=== PATIENT | female | born 1960 | race Caucasian/White ===

== ENCOUNTER 2020-01-03 12:54 | Emergency (ER) | payer OTHER, SELFPAY ==
[2020-01-03 13:44] VITALS: BP 146/83; PULSE 98; RESP 14; TEMP 36.6; O2SAT 98; BMI 31.2
--- NOTE | 2020-01-03 13:50 | HMH.EDUTC ---
[facility] [place] Disposition Clinical Impression: Exposure to COVID-19 virus, Viral syndrome Disposition: Home, Self-Care Condition on Discharge: Good Instructions: Preventing the Spread of Coronavirus Discharge Instructions Additional Instructions: Drink plenty of fluids. Take tylenol or ibuprofen for pain or fever. Follow up with your regular doctor. GO TO THE ER FOR ANY WORSENING SYMPTOMS FOLLOW THE DIRECTIONS ON THE COVID-19 HAND OUT THAT WE GAVE YOU REGARDING SELF-ISOLATION UNTIL YOU KNOW YOUR COVID-19 RESULTS Referrals: Hanna Baron [Primary Care Provider] - Forms: Work/School Release Time of Disposition: 13:55 Medical Decision Making - Medical Records Medical records reviewed: No: I reviewed the patient's medical records. - Prem Inquiry Pt receiving controlled substance: No Vital Signs: 01/03/20 13:44 01/03/20 13:58 Temperature 97.9 F 97.9 F Temperature Source Oral Pulse Rate 98 H Pulse Rate [Right Brachial] 98 H Respiratory Rate 14 14 Blood Pressure 146/83 H Blood Pressure [Right Arm] 146/83 H Blood Pressure Mean [Right Arm] 104 Blood Pressure Source [Right Arm] Automatic Cuff Blood Pressure Position [Right Arm] Sitting 02 Sat by Pulse Oximetry 98 Oxygen Delivery Method Room Air - Lab Data Lab Results 01/03/20 13:24: Influenza Type A Ag Negative, Influenza Type B Ag Negative 01/03/20 13:24: Strep Scn Rapid Clinic Negative [facility] [place] HPI - General Stated complaint: covid exposure Time Seen by Provider: 01/03/20 13:50 Mode of Arrival: Ambulatory Source of Information: Patient Limitations: No Limitations Description of Symptoms (Recalled from Triage Doc. by RN): PATIENT C/O COUGH, RUNNY NOSE, HEADACHE, DIARRHEA AND NAUSEA. REQUESTING COVID TEST HEENT Symptoms (Recalled from RN notes): Yes Resp Symptoms (Recalled from RN notes): Yes Skin Symptoms (Recalled from RN notes): No MS Symptoms (Recalled from RN notes): No Functional Status (Recalled from RN notes): WNL - History of Present Illness Provider Complaint: She states that she was exposed to COVID-19 thru her family. She has been having vague symptoms, but no body aches, severe cough, fever or chills. - Related Data Home Medications Medication Instructions Recorded Confirmed levothyroxine 100 mcg tablet 100 mcg PO DAILY tab 03/25/19 01/03/20 sertraline 100 mg tablet 100 mg PO DAILY tab 03/25/19 01/03/20 simvastatin 10 mg tablet 10 mg PO DAILY tab 03/25/19 01/03/20 trazodone 100 mg tablet 100 mg PO QHS PRN tab 03/25/19 01/03/20 Allergies Allergy/AdvReac Type Severity Reaction Status Date / Time latex Allergy rash Verified 03/25/19 16:38 tetracycline Allergy vomiting Verified 03/25/19 16:39 - Worker's Comp Is this a Worker's Comp case?: No [facility] History - Hepatitis A Screen Drug use history?: No High risk sexual behaviors?: No History of sexually transmitted infection?: No Currently employed?: No Childcare worker?: No Do you have indoor plumbing?: Yes Do you have electricity?: Yes Attestation statement:: This patient has been screened for Hepatitis A risk factors. I have reviewed the patient's past medical history: Yes Medical History: Reports:: Diabetes Mellitus Type 2, Hyperlipidemia Other Medical History: Reports: Thyroid Disease Other Surgeries: Yes: Colonoscopy Comment: D&C - Social History Smoking Status: Never smoker Alcohol Intake: never Substance Use Type: denies use Occupational Status: other Household Members: family ROS Obtained: Yes All systems reviewed & no additional complaints - Constitutional Constitutional: Reports chills, Denies fever(s), Denies poor appetite, Denies malaise - Eyes Eyes: Denies eye discharge - ENT Ears, Nose, Mouth, and Throat: Reports as per HPI - Cardiovascular Cardiovascular: Denies chest pain - Respiratory Respiratory: No chest congestion, No cough Physical Exam - General General appearance: alert, in no apparent dis
[2020-01-03 13:58] VITALS: BP 146/83; PULSE 98; RESP 14; TEMP 36.6; O2SAT 98
[2020-01-03 20:25] LABS: UTC Influenza A Antigen Negative (Negative); UTC Influenza B Antigen Negative (Negative)
[2020-01-03 20:26] LABS: UTC Strep Screen (Rapid) Negative (Negative)
== END 2020-01-03 14:00 | disposition home or self-care (01) ==
PROVIDERS: Emergency Provider Nurse Practitioner Family; PCP Family Medicine
DX: Z20.828 Contact with and (suspected) exposure to other viral communicable diseases (principal); B34.9 Viral infection, unspecified; E78.5 Hyperlipidemia, unspecified; E11.9 Type 2 diabetes mellitus without complications; Z79.899 Other long term (current) drug therapy
CPT/HCPCS: 87804; 87880; 99201; U0003

== ENCOUNTER → 2020-01-14 15:53 | Outpatient (CLI) | payer OTHER, SELFPAY ==
[2020-01-14 20:59] LABS: Coronavirus 19 IgG Antibody Negative (Negative); Coronavirus 19 IgM Antibody Negative (Negative)
== END ==
PROVIDERS: PCP Family Medicine; Visit Provider Family Medicine
DX: Z03.818 Encounter for observation for suspected exposure to other biological agents ruled out (principal)
CPT/HCPCS: 86328; U0003

== ENCOUNTER → 2021-01-14 11:40 | Outpatient (CLI) | payer OTHER, SELFPAY | PROVIDERS: PCP Family Medicine; Visit Provider Nurse Practitioner | DX: Z20.822 Contact with and (suspected) exposure to COVID-19 (principal) | CPT/HCPCS: C9803; U0003; U0005 ==

== ENCOUNTER 2023-08-02 08:46 | Emergency (ER) | payer BC, SELFPAY ==
[2023-08-02] VITALS (7 sets, daily range): BP systolic 114–130; BP diastolic 71–98; PULSE 60–77; RESP 12–18; TEMP 36.9; O2SAT 93–97; BMI 31.7
--- NOTE | 2023-08-02 08:53 | ECG_ITS ---
APPROVED REPORT Exam: Resting ECG HR:73 bpm ECG Measurements Heart Rate 73 AXES FL 138 P 70 QRSd 90 QRS -61 QT 386 T 31 QTc 411 Conclusion SINUS RHYTHM PATTERN CONSISTENT WITH PULMONARY DISEASE LEFT ANTERIOR FASCICULAR BLOCK [QRS AXIS <= -45, QR IN I, RS IN II] Electronically signed by : JALYN BAUM, 08/02/2023 14:25:46
--- NOTE | 2023-08-02 08:55 | CT_ITS ---
FINAL REPORT TECHNIQUE: Multiple axial CT angiography images were performed from the foramen magnum to the thoracic inlet before. This study was performed with techniques to keep radiation doses as low as reasonably achievable (ALARA). Individualized dose reduction techniques using automated exposure control or adjustment of mA and/or kV according to the patient's size were employed. CLINICAL HISTORY: felt pop in head, near syncope, R tingling, fall COMPARISON: None FINDINGS: No fracture is seen. Alignment is normal. Mild degenerative disc disease is present throughout the cervical spine. No obvious bony spinal canal stenosis is present. No gross disk abnormalities are seen. IMPRESSION: No fracture or malalignment Reviewed, Interpreted and Dictated by Caridad Auguste MD Transcribed by Sarah Clifton Authenticated and [facility]
--- NOTE | 2023-08-02 08:55 | CT_ITS ---
FINAL REPORT TECHNIQUE: Multiple axial CT angiography images were performed from the foramen magnum to the vertex before and during IV contrast administration. This study was performed with techniques to keep radiation doses as low as reasonably achievable (ALARA). Individualized dose reduction techniques using automated exposure control or adjustment of mA and/or kV according to the patient's size were employed. CLINICAL HISTORY: felt pop in head, near syncope, R tingling r/o stroke COMPARISON: None FINDINGS: CTA HEAD FINDINGS: No aneurysm is seen. Major intracranial vessels are patent without significant stenosis. . 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 There is no evidence of vascular dissection identified. IMPRESSION: Unremarkable Reviewed, Interpreted and Dictated by Caridad Auguste MD Transcribed by Sarah Clifton Authenticated and [facility]
--- NOTE | 2023-08-02 08:55 | CT_ITS ---
FINAL REPORT TECHNIQUE: Noncontrast exam CLINICAL HISTORY: felt pop in head, near syncope, R tingling r/o stroke COMPARISON: None FINDINGS: No abnormal density is seen. Ventricles are normal. There is no hemorrhage. No mass effect is seen. Bone windows show no evidence of fracture. IMPRESSION: No acute findings Reviewed, Interpreted and Dictated by Caridad Auguste MD Transcribed by Sarah Clifton Authenticated and [facility]
--- NOTE | 2023-08-02 08:55 | CT_ITS ---
FINAL REPORT TECHNIQUE: Multiple axial CT angiography images were performed from the foramen magnum to the thoracic inlet before and during IV contrast administration. This study was performed with techniques to keep radiation doses as low as reasonably achievable (ALARA). Individualized dose reduction techniques using automated exposure control or adjustment of mA and/or kV according to the patient's size were employed. CLINICAL HISTORY: felt pop in head, near syncope, R tingling COMPARISON: None FINDINGS: CT NECK ANGIO, WITHOUT AND WITH CONTRAST TECHNIQUE: Thin section axial CT with IV contrast supplemented with 3D MIP reconstruction NASCET criteria and technique was utilized during interpretation. FINDINGS: Aortic arch: Arch shows no significant narrowing. Great vessel origins are widely patent. Right carotid: No significant stenosis is seen of the cervical common or internal carotid artery. Left carotid: No significant stenosis is seen of the cervical common or internal carotid artery. Vertebrals: Left vertebral artery is dominant. No significant stenosis is present. No evidence of vascular dissection is seen. IMPRESSION: No significant stenosis of the cervical carotid arteries Reviewed, Interpreted and Dictated by Caridad Auguste MD Transcribed by Sarah Clifton Authenticated and [facility]
--- NOTE | 2023-08-02 08:57 | PC.NURSE ---
DR BAUM AT BEDSIDE
--- NOTE | 2023-08-02 09:02 | PC.NURSE ---
would like stroke protocol CT to be completed stat. Morgan in Radiology notified of this.
--- NOTE | 2023-08-02 09:06 | PC.NURSE ---
patient gone to CT at this time via stretcher.
--- NOTE | 2023-08-02 09:06 | PC.NURSE ---
Pt gone to CT
--- NOTE | 2023-08-02 09:07 | HMH.EDGENADL ---
Discharge Plan Disposition Patient Disposition: Home, Self-Care Condition: Good Prescriptions Prescriptions: New meclizine 25 mg tablet 25 mg PO QID PRN (Reason: dizziness) Qty: 20 0RF fluticasone propionate [Flonase Allergy Relief] 50 mcg/actuation spray,suspension 1 spray intranasal BID Qty: 16 0RF Rx Instructions: administer into each nostril cetirizine [Zyrtec] 10 mg tablet 10 mg PO DAILY Qty: 30 0RF No Action levothyroxine 100 mcg tablet 100 mcg PO DAILY trazodone 100 mg tablet 100 mg PO QHS PRN (Reason: Anxiety) simvastatin 10 mg tablet 10 mg PO DAILY sertraline 100 mg tablet 100 mg PO DAILY Referrals Follow up/Referrals: Hanna Baron [Primary Care Provider] - See instructions Activity Restrictions/Add. Instructions Additional Instructions/Restrictions: You were evaluated in the emergency department today. Please parts picker your prescriptions at the pharmacy and take them as prescribed. Follow-up closely with your primary care provider. If your symptoms persist, you may benefit from referral to ENT. Return to the emergency department for new or worsening symptoms. Clinical Impressions Clinical Impression: Benign paroxysmal positional vertigo Stand Alone Forms Stand Alone Forms: Work/School Release Instructions Patient Instructions: DI for Vertigo, DI for Benign Paroxysmal Positional Vertigo Discharge ED Provider: Natalie Song General Adult HPI General Chief complaint: Weakness Stated complaint: dizzy, weakness Time Seen by Provider: 08/02/23 08:55 Mode of Arrival: Ambulatory Source of Information: Patient Limitations: No Limitations Description of Symptoms (Recalled from ER Triage Doc. by RN): dizziness, nausea, r arm tingling History of Present Illness HPI narrative: This patient is a 63-year-old female with a history of hyperlipidemia and hypothyroidism presenting to the emergency department for evaluation with concern for dizziness as well as right face and right arm tingling. Patient reports that she got up to go to work this morning when she was in the shower between 630 and 6:45 AM and suddenly experienced what felt like a pop in her head as well as dizziness. Patient states that it felt like she was going to fall to the right, so she had to go down because she could not stand without feeling like she was falling to the right. She also states that she has tingling of her right face and right arm. She also feeling very nauseated. She was well prior to this. She does not use any anticoagulation and has no history of stroke. She has no vision changes, chest pain, shortness of breath, vomiting, changes bowel movements, or other concerns. She has been suffering from a lot of allergies as of late. Related Data Home Medications Medication Instructions Recorded Confirmed levothyroxine 100 mcg tablet 100 mcg PO DAILY THYROID 03/25/19 01/03/20 sertraline 100 mg tablet 100 mg PO DAILY Depression 03/25/19 01/03/20 simvastatin 10 mg tablet 10 mg PO DAILY Cholesterol 03/25/19 01/03/20 trazodone 100 mg tablet 100 mg PO QHS PRN Anxiety 03/25/19 01/03/20 Previous Rx's Medication Instructions Recorded cetirizine 10 mg tablet (Zyrtec) 10 mg PO DAILY #30 tabs 08/02/23 fluticasone propionate 50 1 spray intranasal BID #16 grams 08/02/23 mcg/actuation nasal spray,suspension (Flonase Allergy Relief) meclizine 25 mg tablet 25 mg PO QID PRN dizziness #20 tabs 08/02/23 Allergies Allergy/AdvReac Type Severity Reaction Status Date / Time latex Allergy rash Verified 03/25/19 16:38 tetracycline Allergy vomiting Verified 03/25/19 16:39 [facility] Disclaimer: The information contained in this section may have been updated after the patient was seen, as this information can be updated by other users. Social History Smoking Status: Never smoker alcohol intake: never substance use type: denies use current occupational status: other Travel in the last 8 weeks: None household members: family ROS Obtained: Yes All systems reviewed & no additional complaints except as documented Physical Exam General General appearance: alert and in no apparent distress Head Head exam: atraumatic and normocephalic Eye Eye exam: Present PERRL, EOMI and nystagmus (horizontal unidirectional) ENT ENT exam: Present normal oropharynx, mucous membranes moist and normal external ear exam; Absent TM's normal bilaterally (serous fluid bilaterally, L>R) Neck Neck exam: Present normal inspection, full ROM and trachea midline; Absent tenderness Chest Chest inspection: Present normal inspection and symmetric chest wall rise; Absent tenderness Respiratory Respiratory exam: Present normal lung sounds bilaterally; Absent respiratory distress, wheezes, stridor or accessory muscle use Cardiovascular Cardiovascular exam: Present regular rate and normal rhythm Abdominal Exam Abdominal exam: Present soft; Absent distention, tenderness or guarding Extremities Exam Extremities exam: Present normal inspection, full ROM and normal capillary refill; Absent tenderness or edema Back Exam Back exam: Present normal inspection and full ROM; Absent tenderness Neurological Exam Neurological exam: Present alert, oriented X3, CN II-XII intact, normal gait and other (No sensory deficit despite paresthesias; horizontal unidirectional nystagmus with worsening of symptoms with EOMI testing); Absent motor sensory deficit Psychiatric Psychiatric exam: Present normal affect and normal mood Skin Skin exam: Present warm and dry Medical Decision Making Medical Records Medical records reviewed: Yes I reviewed the patient's medical records. Prem Inquiry Pt receiving controlled substance: No Vital Signs: 08/02/23 08:47 08/02/23 09:48 08/02/23 10:00 Temperature 98.4 F Temperature Source Oral Pulse Rate 64 72 Pulse Rate [Right] 77 Respiratory Rate 18 15 14 Blood Pressure 114/71 122/72 Blood Pressure [Right Arm] 130/98 H Blood Pressure Mean [Right Arm] 108 02 Sat by Pulse Oximetry 96 93 L 95 Oxygen Delivery Method Room Air 08/02/23 10:30 08/02/23 11:02 08/02/23 11:30 Temperature Temperature Source Pulse Rate 72 64 61 Pulse Rate [Right] Respiratory Rate 12 Blood Pressure 122/72 115/75 116/75 Blood Pressure [Right Arm] Blood Pressure Mean [Right Arm] 02 Sat by Pulse Oximetry 96 94 L 97 Oxygen Delivery Method Room Air Room Air Lab Data Lab results reviewed: Yes I reviewed the patient's lab results. Lab Results 08/02/23 09:02: WBC 5.5, RBC 4.72, Hgb 14.3, Hct 43.2, MCV 91.4, MCH 30.4, MCHC 33.2, RDW 13.8, Plt Count 194, MPV 8.1, Neut % (Auto) 71.1, Lymph % (Auto) 22.6, [place] % (Auto) 4.7, Eos % (Auto) 0.7, Baso % (Auto) 1.0, Neut # (Auto) 3.9, Lymph # (Auto) 1.2, [place] # (Auto) 0.3, Eos # (Auto) 0.0, Baso # (Auto) 0.1, PT 10.3, INR 0.95, APTT 26.6, Sodium 140, Potassium 3.8, Chloride 110 H, Carbon Dioxide 25, Anion Gap 8.8, BUN 21 H, Creatinine 0.90, Estimated Creat Clear 76, Estimated GFR 63, Est GFR ( Amer) 77, Glucose 145 H, Calcium 9.5, Total Bilirubin 0.6, AST 30, ALT 28, Alkaline Phosphatase 87, Troponin I < 0.01, Total Protein 7.3, Albumin 4.2, Globulin 3.1, Albumin/Globulin Ratio 1.4, Vitamin B12 259 08/02/23 11:00: Troponin I < 0.01 08/02/23 09:02 08/02/23 09:02 Orders (Tests/Meds): ED MEDICATIONS Discontinued Medications Generic Name Dose Route Start Last Admin Trade Name Freq PRN Reason Stop Dose Admin Iopamidol 100 ml 08/02/23 09:13 08/02/23 09:14 Iopamidol-370 (76%);100ml Bottle IV 08/02/23 09:14 100 ml ONCE ONE Administration Meclizine HCl 25 mg 08/02/23 09:22 08/02/23 09:24 Meclizine 25mg Tablet PO 08/02/23 09:23 25 mg ONCE ONE Administration Sodium Chloride 50 ml 08/02/23 09:13 08/02/23 09:14 0.9 % Sodium Chloride 50 Ml Vial IV 08/02/23 09:14 50 ml ONCE ONE Administration Sodium Chloride 10 ml 08/02/23 09:13 08/02/23 09:14 Sodium Chloride 0.9% 10ml Syr (Rad Only) IV 08/02/23 09:14 10 ml ONCE ONE Administration ORDERS Category Date Time Status CT angio head Stat Cat Scan 08/02/23 08:[address] angio neck Stat Cat Scan 08/02/23 08:[address] cervical spine wo con Stat Cat Scan 08/02/23 08:[address] head/brain wo con Stat Cat Scan 08/02/23 08:55 Taken Activated Partial Thrombo Time Stat Lab 08/02/23 09:02 Completed Complete Blood Count Auto Diff Stat Lab 08/02/23 09:02 Completed Comprehensive Metabolic Panel Stat Lab 08/02/23 09:02 Completed Prothrombin Time INR Stat Lab 08/02/23 09:02 Completed Troponin I Q3H Lab 08/02/23 11:00 Completed Troponin I Q3H Lab 08/02/23 15:00 Ordered Troponin I Stat Lab 08/02/23 09:02 Completed Vitamin B12 Stat Lab 08/02/23 09:02 Completed ECG Data Tracing #1: I reviewed this ECG and interpreted as documented below: Normal sinus rhythm with a ventricular rate of 73 bpm. Left anterior fascicular block noted. No acute ST changes concerning for ischemia. Normal intervals otherwise. ECG initial impression date: 08/02/23 ECG initial impression time: 08:54 Medical Decision Narrative: In summary, this patient is a 63-year-old female presenting to the Emergency Department for evaluation of dizziness, right-sided face and arm tingling, and nausea that started suddenly while in the shower. Differential diagnoses considered include but are not limited to CVA, intracranial hemorrhage, migraine, BPPV. Ruling out the most morbid conditions drove assessment. It should be noted patient's history includes hyperlipidemia, anxiety, and hypothyroidism which may or may not be at goal therapy. This complicates all aspects of care by increasing patient's risk for morbidity. On exam, patient is resting comfortably in bed with reassuring vital signs and cardiac telemetry. She complains of paresthesias in the arm and face, but sensation to light touch is grossly normal. She also is very dizzy but has intact coordination on exam. NIH stroke scale is effectively 0. She does have fluid behind both ears as well as horizontal unidirectional nystagmus bilaterally that is reassuring for peripheral causes. To further assess, patient was taken emergently for CT stroke protocol scans. Workup included CBC, CMP, troponin, PT, PTT, CT head, CT C-spine, and CT angiogram of the head and neck. Patient was given oral meclizine to assess for symptomatic improvement. I independently interpreted CT scan prior to the radiologist read and noted no obvious intracranial hemorrhage and no large areas of ischemia. Please see their read for final interpretation. I had an interactive discussion with Dr. Carpio and Dr. Adamson at who noted no obvious stroke. Labs were obtained that demonstrated no acutely concerning abnormalities. Initial troponin is negative. On reassessment, patient had good improvement after administration of meclizine. She states she is feeling much better and symptoms have improved. She is able to ambulate without difficulty. At 1040, patient was placed in ED observation status pending second troponin to determine whether or not the patient would be appropriate for discharge versus admission. The patient was provided serial reevaluations and cardiac monitoring while awaiting ultimate disposition. On multiple subsequent reassessments, the patient continues to feel better and is neurologically intact with no difficulty with walking. Second troponin resulted and was also negative. Given reassuring workup and exam, it is felt that the patient is appropriate for discharge at 1150. Total ED observation time was 1 hour 10 min. I had a [id number] visit with the patient when providing discharge instructions. The total time involved in discharging this patient was less than 30 minutes. Critical Care Critical Care Time Critical Care Time: No
[2023-08-02 09:10] LABS: Basophils # 0.1 K/mm3 (0-0.2); Eosinophils % 0.7 % (0.1-12.0); Hematocrit 43.2 % (37.0-47.0); Hemoglobin 14.3 g/dL (12.2-16.2); Lymphocytes # 1.2 K/mm3 (0.7-4.5); Lymphocytes % 22.6 % (10-50); Mean Corpuscular HGB Conc 33.2 g/dL (31.8-35.4); Mean Corpuscular Hemoglobin 30.4 pg (27.0-31.2); Mean Corpuscular Volume 91.4 fl (81-99); Mean Platelet Volume 8.1 fl (7.4-10.4); Monocytes # 0.3 K/mm3 (0.1-1.0); Monocytes % 4.7 % (1.7-9.3); Neutrophils # 3.9 K/mm3 (1.8-7.8); Neutrophils % 71.1 % (37.0-80.0); Platelet Count 194 K/mm3 (142-424); Red Blood Count 4.72 M/mm3 (4.20-5.40); Red Cell Distribution Width 13.8 % (11.5-17.5); White Blood Count 5.5 K/mm3 (4.8-10.8)
[2023-08-02] MEDS: SODIUM CHLORIDE 0.9% 10ML SYR (RAD ONLY) 10 ML IV (09:14)
[2023-08-02] MEDS: 0.9 % SODIUM CHLORIDE 50 ML VIAL IV (09:14)
[2023-08-02] MEDS: IOPAMIDOL-370 (76%);100ML BOTTLE 100 ML IV (09:14)
--- NOTE | 2023-08-02 09:16 | PC.NURSE ---
Pt back in room from ct scan
[2023-08-02] MEDS: MECLIZINE 25MG TABLET 25 MG PO (09:24)
[2023-08-02 09:28] LABS: Activated Partial Thrombo Time 26.6 seconds (22.8-30.6); INR 0.95 (0.9-1.1); Prothrombin Time 10.3 seconds (10.1-12.5)
--- NOTE | 2023-08-02 09:35 | PC.NURSE ---
PT AMBULATED WITHOUT ASSISTANCE, REPORT SLIGHT DIZZINESS WHEN TURNING HEAD TO RIGHT SIDE. NO WEAKNESS
[2023-08-02 09:40] LABS: Chloride 110 mmol/L (98-107); Potassium 3.8 mmoL/L (3.5-5.1); Sodium 140 mmol/L (136-145)
[2023-08-02 09:42] LABS: Blood Urea Nitrogen 21 mg/dl (7-17); Creatinine Clearance Estimated 76 mL/min (50-200); Estimated Glomerular Filt Rate 63 ml/min (>60); GFR (African American) 77 ML/MIN (>60)
[2023-08-02 09:43] LABS: Alanine Aminotransferase 28 U/L (12-78); Albumin Level 4.2 g/dl (3.5-5.0); Albumin/Globulin Ratio 1.4 (1.1-1.8); Alkaline Phosphatase 87 U/L (38-126); Anion Gap 8.8 mEq/L (5-15); Aspartate Amino Transferase 30 U/L (14-36); Bilirubin,Total 0.6 mg/dl (0.2-1.3); Calcium 9.5 mg/dl (8.4-10.2); Carbon Dioxide 25 mmol/L (22.0-30.0); Globulin 3.1 g/dL (1.3-3.2); Glucose 145 mg/dl (74-100); Total Protein,Serum 7.3 g/dl (6.3-8.2)
[2023-08-02 09:54] LABS: Troponin I < 0.01 ng/ml (0.00-0.034)
--- NOTE | 2023-08-02 10:21 | PC.NURSE ---
pt was able to ambulate to the bathroom. reports much improvement in dizziness.
[2023-08-02 10:50] LABS: Vitamin B12 259 pg/mL (239-931)
--- NOTE | 2023-08-02 11:10 | PC.NURSE ---
pt with Radiology
[2023-08-02 11:46] LABS: Troponin I < 0.01 ng/ml (0.00-0.034)
== END 2023-08-02 12:05 | disposition home or self-care (01) ==
PROVIDERS: Emergency Provider Emergency Medicine; PCP Family Medicine
DX: H81.10 Benign paroxysmal vertigo, unspecified ear (principal); R20.2 Paresthesia of skin; I44.4 Left anterior fascicular block; R11.0 Nausea; E03.9 Hypothyroidism, unspecified; E78.5 Hyperlipidemia, unspecified
CPT/HCPCS: 70450; 70496; 70498; 72125; 80053; 82607; 84484; 85025; 85610; 85730; 93005; 99285; Q9967